=== PATIENT | male | born 1965 | race Caucasian/White ===

== ENCOUNTER 2017-11-05 09:39 | Emergency (ER) | payer OTHER ==
[2017-11-05] MEDS ORDERED: NA CHLORIDE 0.9% 1,000 ML ONE (10:35)
[2017-11-05] MEDS ORDERED: FOLIC ACID 5 MG/ML VIAL ONE (10:35)
--- NOTE | 2017-11-05 10:40 | RAD REPORT ---
EXAM DESCRIPTION: CT - Head Brain Wo Cont - 11/05/2017 10:28 am CLINICAL HISTORY: DIZZINESS History of fall with head injury. Drowsiness. COMPARISON: No comparisons TECHNIQUE: All CT scans are performed using dose optimization technique as appropriate and may inclu de automated exposure control or mA/KV adjustment according to patient size. FINDINGS: No intracranial hemorrhage, hydrocephalus or extra-axial fluid collection.No areas of brai n edema or evidence of midline shift. The paranasal sinuses and mastoids are essentially clear. The calvarium is intact. IMPRESSION: No acute intracranial abnormality.
[2017-11-05 10:51] LABS: Absolute Monocytes 0.4 K/uL (0.1-1.3); Absolute Neutrophil 3.2 K/uL (1.8-8.0); Eosinophils % 5.2 % (0-4.4); Hematocrit 46.2 % (39.6-49.0); Lymphocytes % 32.9 % (15.3-44.8); MCH 30.9 pg (27.0-35.0); MCV 91.4 fL (80-100); MPV 8.7 fL (7.6-11.3); Monocytes % 6.4 % (3.3-12.3); RBC Red Blood Cell Count 5.06 M/uL (4.33-5.43)
[2017-11-05 10:52] LABS: Bilirubin Direct 0.2 mg/dL (0-0.2); Bilirubin Total 0.9 mg/dL (0.2-1.0); CKMB Creatine Kinase MB 3.6 ng/mL (0.3-3.6); Magnesium 2.4 mg/dL (1.8-2.4); Potassium 4.3 mmol/L (3.5-5.1); Protein, Total 8.3 g/dL (6.4-8.2)
[2017-11-05] MEDS ORDERED: THIAMINE 200 MG/2 ML INJ ONE (10:52)
[2017-11-05] MEDS ORDERED: ASPIRIN 81 MG CHEWABLE TABLET ONE (10:52)
[2017-11-05 10:54] LABS: Protime INR 0.92
--- NOTE | 2017-11-05 11:06 | RAD REPORT ---
EXAM DESCRIPTION: MRI - Brain Wo Cont - 11/05/2017 10:56 am CLINICAL HISTORY: Dizziness, syncope, fall COMPARISON: CT head November 05 TECHNIQUE: Sagittal T1-weighted images were obtained along with axial PD, heavily T2-weighted and T2 -FLAIR images. Axial DWI and ADC mapping sequences were also obtained along with coronal heavily T2-w eighted images. FINDINGS: No intracranial hemorrhage, mass or acute infarction. There is no edema or shift of midlin e structures. No extra-axial fluid collections. Flores-matter/white matter junction is preserved. Signa l voids are seen as a normal finding in the major intracranial vessels. No atrophy changes are seen. Ventricles are normal. Scattered areas of hyperintense T2 signal are present in the cerebral white ma tter. Basal ganglia, thalamus, brainstem and cerebellum tissues are spared this signal abnormality pa ttern. Pattern is most typically due to chronic ischemic change. Patient is relatively young for this pattern. Migraine headache, vasculitis and demyelinization etiologies are possible but need supporti ng clinical findings. No globe or orbital content abnormality. No cerebellopontine angle mass. Mastoid air cells are clear. Patchy mucosal thickening changes are present in the paranasal sinuses. IMPRESSION: No mass, hemorrhage or acute infarction changes seen. Cerebral hemisphere white matter signal abnormalities are most commonly chronic ischemic change. The patient is relatively young for chronic ischemic change. Vasculitis, migraine headache and demyel inization etiologies would be possible but need supporting clinical findings.
[2017-11-05 11:09] LABS: Thyroid Stimulating Hormone 67.6 uIU/mL (0.36-3.74)
--- NOTE | 2017-11-05 11:09 | RAD REPORT ---
EXAM DESCRIPTION: RAD - Chest Single View - 11/05/2017 10:59 am CLINICAL HISTORY: Cough COMPARISON: None. TECHNIQUE: AP portable chest image was obtained 1047 hours . FINDINGS: The lungs are clear of a focal infiltrate, mass or failure finding. Interstitial markings are mildly prominent believed to be baseline. Heart and vasculature are normal. No measurable pleural effusion and no pneumothorax. No gross bony abnormality seen. No acute aortic findings suspected. IMPRESSION: No acute cardiopulmonary process.
--- NOTE | 2017-11-05 11:23 | RAD REPORT ---
EXAM DESCRIPTION: LISANDRO - CP - 11/05/2017 11:16 am CLINICAL HISTORY: DIZZINESS CVA COMPARISON: No comparisons TECHNIQUE: Real-time sonographic evaluation of both carotid systems was performed. Doppler interroga tion was performed with waveform tracing bilaterally. FINDINGS: Normal high resistance waveforms are noted in both external carotid arteries. The common c arotid arteries and internal carotid arteries show normal low resistance waveforms. No significant plaque formation is seen. Peak systolic and end diastolic velocity values and the ICA/ CCA ratios are in the non-hemodynamically significant range. Antegrade flow seen in both vertebral arteries. IMPRESSION: No significant atherosclerotic changes noted. No evidence of a hemodynamically significant stenosis.
--- NOTE | 2017-11-05 11:50 | EDPHYS ---
Physician Documentation [facility] Name: Azam Talavera Age: 52 yrs Sex: Male : 1965 Arrival Date: 11/05/2017 Time: 09:42 Bed 20 Private MD: ED Physician Hair Foster HPI: 11/05 10:14 This 52 yrs old Male presents to ER via Wheelchair with complaints of tacos Dizziness, Unsteady. 10:14 The patient presents with dizziness, a sense of confusion. Onset: The symptoms/episode tacos began/occurred 3 day(s) ago. Context: occurred at home. Modifying factors: The symptoms are alleviated by nothing, the symptoms are aggravated by nothing. Associated signs and symptoms: Pertinent positives: confusion, tingling. Severity of symptoms: At their worst the symptoms were mild in the emergency department the symptoms are unchanged. Patient's baseline: Neuro: alert and fully oriented. The patient has not experienced similar symptoms in the past. Historical: - Allergies: 10:06 NKA; iw - PMHx: 10:06 Hypothyroidism; iw - PSHx: 10:06 None; iw - Immunization history:: Adult Immunizations up to date. - Social history:: Smoking status: Patient/guardian denies using tobacco. - Ebola Screening: : Patient negative for fever greater than or equal to 101.5 degrees Fahrenheit, and additional compatible Ebola Virus Disease symptoms Patient denies exposure to infectious person Patient denies travel to an Ebola-affected area in the 21 days before illness onset No symptoms or risks identified at this time. - Family history:: not pertinent. ROS: 10:14 Constitutional: Negative for fever, chills, and weight loss, Eyes: Negative for injury, tacos pain, redness, and discharge, ENT: Negative for injury, pain, and discharge, Neck: Negative for injury, pain, and swelling, Cardiovascular: Negative for chest pain, palpitations, and edema, Respiratory: Negative for shortness of breath, cough, wheezing, and pleuritic chest pain, Abdomen/GI: Negative for abdominal pain, nausea, vomiting, diarrhea, and constipation, Back: Negative for injury and pain, : Negative for injury, bleeding, discharge, and swelling, MS/Extremity: Negative for injury and deformity, Skin: Negative for injury, rash, and discoloration, Psych: Negative for depression, anxiety, suicide ideation, homicidal ideation, and hallucinations, Allergy/Immunology: Negative for hives, rash, and allergies, Endocrine: Negative for neck swelling, polydipsia, polyuria, polyphagia, and marked weight changes, Hematologic/Lymphatic: Negative for swollen nodes, abnormal bleeding, and unusual bruising. 10:14 Neuro: Positive for dizziness, weakness. Exam: 10:14 Constitutional: This is a well developed, well nourished patient who is awake, alert, tacos and in no acute distress. Head/Face: Normocephalic, atraumatic. Eyes: Pupils equal round and reactive to light, extra-ocular motions intact. Lids and lashes normal. Conjunctiva and sclera are non-icteric and not injected. Cornea within normal limits. Periorbital areas with no swelling, redness, or edema. ENT: Nares patent. No nasal discharge, no septal abnormalities noted. Tympanic membranes are normal and external auditory canals are clear. Oropharynx with no redness, swelling, or masses, exudates, or evidence of obstruction, uvula midline. Mucous membranes moist. Neck: Trachea midline, no thyromegaly or masses palpated, and no cervical lymphadenopathy. Supple, full range of motion without nuchal rigidity, or vertebral point tenderness. No Meningismus. Chest/axilla: Normal chest wall appearance and motion. Nontender with no deformity. No lesions are appreciated. Cardiovascular: Regular rate and rhythm with a normal S1 and S2. No gallops, murmurs, or rubs. Normal PMI, no JVD. No pulse deficits. Respiratory: Lungs have equal breath sounds bilaterally, clear to auscultation and percussion. No rales, rhonchi or wheezes noted. No increased work of breathing, no retractions or nasal flaring. Abdomen/GI: Soft, non-tender, with normal bowel sounds. No distension or tympany. No guarding or rebound. No evidence of tenderness throughout. Back: No spinal tenderness. No costovertebral tenderness. Full range of motion. Male : Normal genitalia with no discharge or lesions. Skin: Warm, dry with normal turgor. Normal color with no rashes, no lesions, and no evidence of cellulitis. MS/ Extremity: Pulses equal, no cyanosis. Neurovascular intact. Full, normal range of motion. Neuro: Awake and alert, GCS 15, oriented to person, place, time, and situation. Cranial nerves II-XII grossly intact. Motor strength 5/5 in all extremities. Sensory grossly intact. Cerebellar exam normal. Normal gait. Psych: Awake, alert, with orientation to person, place and time. Behavior, mood, and affect are within normal limits. Vital Signs: 10:05 BP 116 / 93; Pulse 70; Resp 16; Temp 98.2; Pulse Ox 99% on R/A; Weight 83.91 kg; Height iw 5 ft. 7 in. (170.18 cm); Pain 0/10; 11:46 BP 117 / 85; Pulse 61; Resp 18; Pulse Ox 97% on R/A; Pain 0/10; em 12:49 BP 113 / 85; Pulse 53; Resp 16; Pulse Ox 98% on R/A; Pain 0/10; em 10:05 Body Mass Index 28.97 (83.91 kg, 170.18 cm) iw MDM: 09:47 Patient medically screened. [facility] 10:18 Data reviewed: vital signs, nurses notes, lab test result(s), EKG, radiologic studies, [facility] CT scan, MRI, plain films. 11/05 10:13 Order name: Basic Metabolic Panel; Complete Time: : tacos 11/05 10:13 Order name: CBC with Diff; Complete Time: : tacos 11/05 10:13 Order name: Ckmb; Complete Time: : tacos 11/05 10:13 Order name: CPK; Complete Time: : tacos 11/05 10:13 Order name: LFT's; Complete Time: : tacos 11/05 10:13 Order name: Magnesium; Complete Time: : [facility] 11/05 10:13 Order name: NT PRO-BNP; Complete Time: :37 tacos 11/05 10:13 Order name: PT-INR; Complete Time: :37 tacos 11/05 10:13 Order name: Ptt, Activated; Complete Time: :37 tacos 11/05 10:13 Order name: Troponin (emerg Dept Use Only); Complete Time: :37 tacos 11/05 10:13 Order name: UDS tacos 11/05 10:16 Order name: TSH; Complete Time: : tacos 11/05 11:10 Order name: T4 Free; Complete Time: 11:37 EDMS 11/05 11:41 Order name: Sed Rate [facility] 11/05 10:13 Order name: XRAY Chest (1 view); Complete Time: 11:37 [facility] 11/05 10:13 Order name: EKG; Complete Time: 10:14 [facility] 11/05 10:13 Order name: Cardiac monitoring; Complete Time: 10:36 [facility] 11/05 10:13 Order name: EKG - Nurse/Tech; Complete Time: 10:36 [facility] 11/05 10:13 Order name: IV Saline Lock; Complete Time: 10:36 [facility] 11/05 10:13 Order name: Labs collected and sent; Complete Time: 10:36 [facility] 11/05 10:13 Order name: US Carotid Artery Bilateral; Complete Time: 11:37 [facility] 11/05 10:13 Order name: CT Head Brain wo Cont; Complete Time: 11:37 [facility] 11/05 10:13 Order name: MRI - Brain Wo Cont; Complete Time: 11:37 [facility] 11/05 11:43 Order name: LAB Add On 11/05 12:00 Order name: Urine Dipstick--Ancillary (enter results) 11/05 10:13 Order name: O2 Per Protocol; Complete Time: 10:36 [facility] 11/05 10:13 Order name: O2 Sat Monitoring; Complete Time: 10:36 [facility] 11/05 10:13 Order name: Urine Dipstick-Ancillary (obtain specimen); Complete Time: 11:56 [facility] Administered Medications: 11:24 Drug: NS 0.9% 1000 ml Route: IV; Rate: 1 bolus; Site: right antecubital; em 12:30 Follow up: IV Status: Completed infusion; IV Intake: 1000ml em 11:31 Drug: foLIC Acid 1 mg Route: IVPB; Site: right antecubital; hj 12:06 Follow up: Response: No adverse reaction em 12:50 Follow up: Response: No adverse reaction; IV Status: Completed infusion em 11:31 Drug: Thiamine 100 mg Route: IV; Rate: bolus; Site: right antecubital; hj 12:06 Follow up: Response: No adverse reaction; IV Status: Completed infusion em 11:34 Drug: Aspirin Chewable Tablet 324 mg Route: PO; em 12:06 Follow up: Response: No adverse reaction em 12:30 Drug: Synthroid 150 mcg Route: PO; em 12:51 Follow up: Response: Medication administered at discharge. em Disposition: 07/27/18 11:49 Discharged to Home. Impression: Dizziness and giddiness, Weakness, Hypothyroidism, unspecified. - Condition is Stable. - Discharge Instructions: Dizziness, Hypothyroidism, Vertigo, Weakness, Weakness, [id number], Aspirin and Your Heart, Dizziness, [id number]. - Prescriptions for Meclizine 25 mg Oral Tablet - take 1 tablet by ORAL route every 8 hours As needed; 30 tablet. Folic Acid 1 mg Oral Tablet - take 1 tablet by ORAL route once daily; 30 tablet. Synthroid 125 mcg Oral tablet - take 1 tablet by ORAL route once daily; 30 tablet. - Medication Reconciliation Form, Thank You Letter, Antibiotic Education, Prescription Opioid Use, Work release form form. - Follow up: Private Physician; When: 2 - 3 days; Reason: Recheck today's complaints, Continuance of care, Re-evaluation by your physician. Follow up: Ziggy Kaminski MD; When: 2 - 3 days; Reason: Recheck today's complaints, Re-evaluation by your physician. - Problem is new. - Symptoms have improved. Signatures: Dispatcher [employer] EDSD Hair Foster MD MD cha Munoz, Edgar, WELL SHOOTER WELL SHOOTER Rosie Young RN RN Storm Hinds RN RN Corrections: (The following items were deleted from the chart) 12:38 11:49 11/05/2017 11:49 Discharged to Home. Impression: Dizziness and giddiness; tacos Weakness; Hypothyroidism, unspecified. Condition is Stable. Discharge Instructions: Dizziness, Vertigo, Weakness, Weakness, [id number], Aspirin and Your Heart, Dizziness, [id number]. Prescriptions for Meclizine 25 mg Oral Tablet - take 1 tablet by ORAL route every 8 hours As needed; 30 tablet, Folic Acid 1 mg Oral Tablet - take 1 tablet by ORAL route once daily; 30 tablet. and Forms are Medication Reconciliation Form, Thank You Letter, Antibiotic Education, Prescription Opioid Use. Follow up: Private Physician; When: 2 - 3 days; Reason: Recheck today's complaints, Continuance of care, Re-evaluation by your physician. Problem is new. Symptoms have improved. tacos 12:50 12:38 11/05/2017 11:49 Discharged to Home. Impression: Dizziness and giddiness; em Weakness; Hypothyroidism, unspecified. Condition is Stable. Discharge Instructions: Dizziness, Vertigo, Weakness, Weakness, [id number], Aspirin and Your Heart, Dizziness, Ddco-pq-[id number], Hypothyroidism. Prescriptions for Meclizine 25 mg Oral Tablet - take 1 tablet by ORAL route every 8 hours As needed; 30 tablet, Folic Acid 1 mg Oral Tablet - take 1 tablet by ORAL route once daily; 30 tablet, Synthroid 125 mcg Oral tablet - take 1 tablet by ORAL route once daily; 30 tablet. and Forms are Medication Reconciliation Form, Thank You Letter, Antibiotic Education, Prescription Opioid Use, Work release form. Follow up: Private Physician; When: 2 - 3 days; Reason: Recheck today's complaints, Continuance of care, Re-evaluation by your physician. Follow up: Ziggy Kaminski; When: 2 - 3 days; Reason: Recheck today's complaints, Re-evaluation by your physician. Problem is new. Symptoms have improved. tacos
--- NOTE | 2017-11-05 11:50 | ER ---
Nurse's Notes [facility] Name: Azam Talavera Age: 52 yrs Sex: Male : 1965 Arrival Date: 11/05/2017 Time: 09:42 Bed 20 Private MD: Diagnosis: Dizziness and giddiness;Weakness;Hypothyroidism, unspecified Presentation: 11/05 09:58 Presenting complaint: Patient states: feels like his equilibrium has been off, has had iw moments of disorientation and not sleeping well over past months, symptoms have worsened over past 3-4 days, works in the heat and has low energy at work, he also had fall at work the other but didn't hit his head, hurt his finger, stopped taking his levothyroxine one month ago and started taking tri iodine, also has had issues with vision X 1 month, also has headaches daily. Transition of care: patient was not received from another setting of care. Onset of symptoms was October 06, 2017. Risk Assessment: Do you want to hurt yourself or someone else? Patient reports no desire to harm self or others. Initial Sepsis Screen: Does the patient meet any 2 criteria? No. Patient's initial sepsis screen is negative. Does the patient have a suspected source of infection? No. Patient's initial sepsis screen is negative. Care prior to arrival: None. 09:58 Method Of Arrival: Wheelchair iw 09:58 Acuity: MCKENNA 3 iw Historical: - Allergies: 10:06 NKA; iw - PMHx: 10:06 Hypothyroidism; iw - PSHx: 10:06 None; iw - Immunization history:: Adult Immunizations up to date. - Social history:: Smoking status: Patient/guardian denies using tobacco. - Ebola Screening: : Patient negative for fever greater than or equal to 101.5 degrees Fahrenheit, and additional compatible Ebola Virus Disease symptoms Patient denies exposure to infectious person Patient denies travel to an Ebola-affected area in the 21 days before illness onset No symptoms or risks identified at this time. - Family history:: not pertinent. Screenin:43 Abuse screen: Denies threats or abuse. Nutritional screening: No deficits noted. em Tuberculosis screening: No symptoms or risk factors identified. Fall Risk Gait- Impaired (20 pts.). Total Cervantes Fall Scale indicates No Risk (0-24 pts). Assessment: 10:10 General: Appears in no apparent distress. comfortable, Behavior is calm, cooperative. em Pain: Denies pain. Neuro: Level of Consciousness is awake, alert, obeys commands, confused, Oriented to person, place, time, situation, Reports dizziness, for about a month "vision problems". Denies weakness blurred vision numbness headache. Cardiovascular: Denies chest pain, shortness of breath, Capillary refill < 3 seconds Patient's skin is warm and dry. Respiratory: Airway is patent Respiratory effort is even, unlabored, Respiratory pattern is regular, symmetrical. GI: Abdomen is flat, Reports nausea, Patient currently denies vomiting. : Denies burning with urination. EENT: No signs and/or symptoms were reported regarding the EENT system. Derm: Skin is intact, Skin is pink, warm \\T\\ dry. Musculoskeletal: Range of motion: intact in all extremities. 10:20 Reassessment: Patient appears in no apparent distress at this time. Patient and/or iw family updated on plan of care and expected duration. Pain level reassessed. I agree with above assessment by Rudy Grier LVN. 10:30 Reassessment: Patient appears in no apparent distress at this time. pt currently in CT em then will go to have MRI. 11:32 Reassessment: Patient appears in no apparent distress at this time. Patient and/or em family updated on plan of care and expected duration. Pain level reassessed. Patient is alert, oriented x 3, equal unlabored respirations, skin warm/dry/pink. Patient denies pain at this time. 12:04 Reassessment: faxed Synthroid order to pharmacy, pt up for discharge, pending em completion of NS 1 L bolus. 12:37 Reassessment: Patient appears in no apparent distress at this time. Patient and/or em family updated on plan of care and expected duration. Pain level reassessed. Patient is alert, oriented x 3, equal unlabored respirations, skin warm/dry/pink. Patient denies pain at this time. Patient states feeling better. Vital Signs: 10:05 BP 116 / 93; Pulse 70; Resp 16; Temp 98.2; Pulse Ox 99% on R/A; Weight 83.91 kg; Height iw 5 ft. 7 in. (170.18 cm); Pain 0/10; 11:46 BP 117 / 85; Pulse 61; Resp 18; Pulse Ox 97% on R/A; Pain 0/10; em 12:49 BP 113 / 85; Pulse 53; Resp 16; Pulse Ox 98% on R/A; Pain 0/10; em 10:05 Body Mass Index 28.97 (83.91 kg, 170.18 cm) iw ED Course: 09:42 Patient arrived in ED. as 09:47 Hair Foster MD is Attending Physician. tacos 10:05 Triage completed. iw 10:07 Arm band placed on. iw 10:10 Patient has correct armband on for positive identification. Bed in low position. Call em light in reach. Side rails up X2. 10:10 No provider procedures requiring assistance completed. em 10:20 Initial lab(s) drawn, by me, sent to lab. Inserted saline lock: 20 gauge in right em antecubital area, using aseptic technique. Blood collected. 10:[address] via wheelchair. sj 10:26 Rudy Grier LVN is Primary Nurse. em 10:26 Radiology exam delayed due to ATTEMPTED CXR, PT IN CT THEN GOING TO MRI, WILL TRY AGAIN jb2 LATER. 10:27 CT completed. Patient tolerated procedure well. Patient moved to MRI via wheelchair. sj 10:28 CT Head Brain wo Cont In Process Unspecified. EDMS 10:56 MRI - Brain Wo Cont In Process Unspecified. EDMS 10:56 MRI completed. Patient tolerated well. Patient moved to radiology. sj 10:57 XRAY Chest (1 view) In Process Unspecified. EDMS 10:57 X-ray completed. Patient tolerated procedure well. Patient taken to ultrasound. via jb2 wheelchair. 11:16 US Carotid Artery Bilateral In Process Unspecified. EDMS 11:48 EKG done, by fabrication technician. reviewed by Hair Foster MD. at1 11:55 Urine collected: urinal, yellow-green clear. dh3 12:37 Ziggy Kaminski MD is Referral Physician. tacos 12:48 IV discontinued, intact, bleeding controlled, No redness/swelling at site. Pressure em dressing applied. Administered Medications: 11:24 Drug: NS 0.9% 1000 ml Route: IV; Rate: 1 bolus; Site: right antecubital; em 12:30 Follow up: IV Status: Completed infusion; IV Intake: 1000ml em 11:31 Drug: foLIC Acid 1 mg Route: IVPB; Site: right antecubital; hj 12:06 Follow up: Response: No adverse reaction em 12:50 Follow up: Response: No adverse reaction; IV Status: Completed infusion em 11:31 Drug: Thiamine 100 mg Route: IV; Rate: bolus; Site: right antecubital; hj 12:06 Follow up: Response: No adverse reaction; IV Status: Completed infusion em 11:34 Drug: Aspirin Chewable Tablet 324 mg Route: PO; em 12:06 Follow up: Response: No adverse reaction em 12:30 Drug: Synthroid 150 mcg Route: PO; em 12:51 Follow up: Response: Medication administered at discharge. em Intake: 12:30 IV: 1000ml; Total: 1000ml. em Outcome: 11:49 Discharge ordered by . [facility] 12:48 Discharged to home ambulatory. em 12:48 Condition: good 12:48 Discharge instructions given to patient, Instructed on discharge instructions, follow up and referral plans. medication usage, Demonstrated understanding of instructions, follow-up care, medications, Prescriptions given X 3. 12:50 Patient left the ED. 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 em em
[2017-11-05 12:05] LABS: Urine Blood NEGATIVE (NEG); Urine Glucose NEGATIVE (NEG); Urine Protein NEGATIVE (NEG)
[2017-11-05 12:14] LABS: Barbiturates NEGATIVE (NEGATIVE); Benzodiazepines NEGATIVE (NEGATIVE); Cocaine NEGATIVE (NEGATIVE); METHAMPHETAM NEGATIVE (NEGATIVE); Methadone NEGATIVE (NEGATIVE); Opiates NEGATIVE (NEGATIVE); Phencyclidine NEGATIVE (NEGATIVE); THC Cannibis NEGATIVE (NEGATIVE)
[2017-11-05] MEDS ORDERED: LEVOTHYROXINE SOD 0.075 MG TAB PO ONE (12:15)
--- NOTE | 2017-11-05 18:08 | EKG ---
Test Date: 2017-11-05 Test Time: 11:42:12 [employer] Machine: KASH MEASUREMENT RESULTS: Intervals: Rate: 53 FL: 152 QRSD: 92 QT: 422 QTc: 395 [place]: P: 59 FL: 152 QRS: 49 T: 43 INTERPRETIVE STATEMENTS: Sinus bradycardia Nonspecific T wave abnormality Abnormal ECG No previous ECG available for comparison Electronically Signed On 11-05-17 18:06:52 CDT by John Lynn
== END 2017-11-05 12:50 | disposition home or self-care (01) ==
LOC: ER 09:39
DX: R42 Dizziness and giddiness (principal); R53.1 Weakness; E03.9 Hypothyroidism, unspecified
CPT/HCPCS: 36415; 70450; 70551; 71045; 80048; 80076; 80307; 81003; 82550; 82553; 83735; 83880; 84439; 84443; 84484; 85025; 85610; 85652; 85730; 93005; 93880; 96365; 96368; 99284; J3411; J7030